=== PATIENT | male | born 1985 | race Caucasian/White ===

== ENCOUNTER 2018-04-03 19:25 | Emergency (ER) | payer SELFPAY ==
[2018-04-03 19:32] VITALS: BP 138/77
[2018-04-03] MEDS ORDERED: AZITHROMYCIN 250 MG TABLET PO ONE (19:44)
[2018-04-03] MEDS ORDERED: LIDOCAINE 1% INJ-PF (10 MG/ML) 30 ML SDV INFIL ONE (19:45)
[2018-04-03] MEDS ORDERED: CEFTRIAXONE INJ 250 MG VIAL IM ONE (19:45)
--- NOTE | 2018-04-03 19:47 | ER Document Report ---
ED General - General Chief Complaint: Bleeding from penis/ pain. Stated Complaint: URINARY PROBLEMS Notes: Patient is a 32-year-old male that presents to the emergency department for chief complaint of dysuria, urethral discharge. Patient states that he has been having sex with other partners, and over the last 2 days noticed he has had pain with urination and urethral discharge. Denies any fevers, chills, night sweats, nausea, vomiting, abdominal pain, chest pain or shortness of breath. Denies prior history of STI's. Past Medical History: Denies chronic medical conditions Past Surgical History: Denies major surgical history Social History: Admits to smoking cigarettes, denies alcohol or illicit drug use Family History: Reviewed and noncontributory for presenting illness Allergies: Reviewed, see documented allergy list. REVIEW OF SYSTEMS: Unless otherwise stated in this report the patient's positive and negative responses for review of systems for constitutional, eyes, ENT, cardiovascular, respiratory, gastrointestinal, neurological, genitourinary, musculoskeletal, and integumentary systems and related systems to the presenting problem are either as stated in the HPI or were not pertinent or were negative for the symptoms and/or complaints related to the presenting medical problem. PHYSICAL EXAMINATION: Vital signs reviewed, nursing noted reviewed. GENERAL: Well-appearing, well-nourished and in no acute distress. HEAD: Atraumatic, normocephalic. EYES: Eyes appear normal, extraocular movements intact, sclera anicteric, conjunctiva are normal. ENT: nares patent, oropharynx clear without exudates. Moist mucous membranes. NECK: Normal range of motion, supple without lymphadenopathy LUNGS: Breath sounds clear to auscultation bilaterally and equal. No wheezes rales or rhonchi. HEART: Regular rate and rhythm without murmurs ABDOMEN: Soft, nontender, normoactive bowel sounds. No rebound, guarding, or rigidity. No masses appreciated. Male genital: Patient has erythema at the urethral meatus, and purulent discharge noted, no testicular swelling, erythema or scrotal edema. EXTREMITIES: Nontender, good range of motion, no pitting or edema. NEUROLOGICAL: No focal neurological deficits. Moves all extremities spontaneously Motor and sensory grossly intact on exam. PSYCH: Normal mood, normal affect. SKIN: Warm, Dry, normal turgor, no rashes or lesions noted on exposed skin TRAVEL OUTSIDE OF THE [place] IN LAST 30 DAYS: No - Related Data Allergies/Adverse Reactions: No Known Allergies Allergy (Verified 02/21/13 09:31) Past Medical History - Social History Smoking Status: Current Every Day Smoker Family History: Reviewed & Not Pertinent Patient has suicidal ideation: No Patient has homicidal ideation: No Pulmonary Medical History: Reports: Hx Asthma Renal/ Medical History: Denies: Hx Peritoneal Dialysis Past Surgical History: Reports: Hx Orthopedic Surgery - L ant. upper arm opened and cleaned out in the operating room 12-21-14 - Immunizations Immunizations up to date: Yes Hx Diphtheria, Pertussis, Tetanus Vaccination: Yes Physical Exam - Vital signs Vitals: Temp Pulse Resp BP Pulse Ox 98.4 F 100 16 138/77 H 100 04/03/18 19:30 04/03/18 19:30 04/03/18 19:30 04/03/18 19:30 04/03/18 19:30 Course - Re-evaluation Re-evalutation: Testing will be sent for GC and chlamydia, and urinalysis, will treat the patient for gonorrhea urethritis and chlamydia empirically with 1000 mg of azithromycin p.o., and 250 mg of Rocephin IM, he is advised to discuss this with any potential sex partners, for them to seek treatment. Patient discharged to home. - Vital Signs Vital signs: Temp Pulse Resp BP Pulse Ox 98.4 F 100 16 138/77 H 100 04/03/18 19:30 04/03/18 19:30 04/03/18 19:30 04/03/18 19:30 04/03/18 19:30 Discharge - Discharge Clinical Impression: Urethritis Condition: Stable Disposition: HOME, SELF-CARE Instructions: Urethritis ([facility]) Additional Instructions: Encourage any sexual partners to sex treatment for STI's including chlamydia/ gonorrhea. Referrals: [facility] [Provider Group] - Follow up in 3-5 days
[2018-04-03 20:22] LABS: APPEARANCE,URINE TURBID; BILIRUBIN,URINE NEGATIVE (NEGATIVE); COLOR,URINE AMBER; GLUCOSE, URINE NEGATIVE (NEGATIVE); KETONES,URINE NEGATIVE (NEGATIVE); LEUKOCYTE ESTERASE,URINE LARGE (NEGATIVE); NITRITE,URINE NEGATIVE (NEGATIVE); PROTEIN,URINE 100 mg/dL (NEGATIVE)
[2018-04-03 21:32] LABS: CHLAM PCR NOT DETECTED (NOT DETECT); GON PCR DETECTED (NOT DETECT)
== END 2018-04-03 19:58 | disposition home or self-care (01) ==
LOC: ER 19:25
DX: N34.2 Other urethritis (principal); R30.0 Dysuria; R36.9 Urethral discharge, unspecified; F17.200 Nicotine dependence, unspecified, uncomplicated; J45.909 Unspecified asthma, uncomplicated
CPT/HCPCS: 99283; 96372; 81001; 87491; 87591; J3490; J0696